=== PATIENT | female | born 1990 | race Caucasian/White ===

== ENCOUNTER 2016-09-26 18:11 | Emergency (ER) | payer OTHER, MEDICAID ==
[2016-09-26 18:29] VITALS: BP 148/69
--- NOTE | 2016-09-26 19:00 | EDM.PDOC ---
[id number]: LOW BACK PAIN Time Seen by Provider: 09/26/16 19:00 Source of Information: Reports: Patient History Limitations: Reports: No Limitations - History of Present Illness INITIAL COMMENTS - FREE TEXT/NARRATIVE: PT HAS A HISTORY OF LUMBAR DISC DISEASE WITH A mri ABOUT 5 YEARS AGO. sHE HAS HAD SOME PAIN ON AND OFF BUT NOTHING STEADY. fOR THE PAST 2 WEEKS SHE HAS BEEN VERY UNCOMFORTABLE. tODAY SHE HAD A PERIOD OF NUMBNESS IN THE LEFT LEG. yESTERDAY SHE HAD SEVERE SHARP SHOOTING PAIN DOWN THE RT LEG. I Onset: Gradual Duration: Day(s):, Other ( THIS HAS BEEN GOING ON FOR 2 WEEKS. ) Location: Reports: Back Associated Symptoms: Reports: No Other Symptoms - Related Data Allergies Allergy/AdvReac Type Severity Reaction Status Date / Time cyclobenzaprine HCl Allergy Swelling Verified 02/17/15 12:39 [From Flexeril] penicillin V [Penicillin V] Allergy Rash Verified 02/17/15 12:39 Penicillins Allergy Rash Verified 02/17/15 12:39 Home Meds: Home Meds Albuterol Sulfate [Proair Hfa] 1 - 2 puff IH ASDIRECTED 12/14/12 [History] Multivitamin with Minerals [Multiple Vitamin] 1 tab PO DAILY 08/08/14 [History] Escitalopram [Lexapro] 10 mg PO DAILY 02/22/16 [History] Loratadine [Claritin] 10 mg PO DAILY 02/22/16 [History] Diclofenac Sodium [Diclofenac Sodium] 09/26/16 [History] Omeprazole [Omeprazole] 09/26/16 [History] Past Medical History HEENT History: Reports: Impaired Vision Respiratory History: Reports: Asthma 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: Neurological History: Reports: Migraines Psychiatric History: Reports: Bipolar, Depression Other Psychiatric History: borderline personality disorder - Past Surgical History GI Surgical History: Reports: Cholecystectomy Female Surgical History: Reports: Section Other Musculoskeletal Surgeries/Procedures:: ankle surgery 07/20/14 Social & Family History - Tobacco Use Smoking Status *Q: Never Smoker Years of Tobacco use: 5 Used Tobacco, but Quit: No Second Hand Smoke Exposure: No - Caffeine Use Caffeine Use: Reports: Coffee, Energy Drinks - Alcohol Use Days Per Week of Alcohol Use: 1 Number of Drinks Per Day: 1 Total Drinks Per Week: 1 - Recreational Drug Use Recreational Drug Use: No ED ROS GENERAL - Review of Systems Review Of Systems: See Below Constitutional: Reports: No Symptoms HEENT: Reports: No Symptoms Respiratory: Reports: No Symptoms Cardiovascular: Reports: No Symptoms Endocrine: Reports: No Symptoms GI/Abdominal: Reports: No Symptoms : Reports: No Symptoms Musculoskeletal: Reports: Other ( SEVERE PAIN IN THE LOWER BACK. ) ED EXAM,LOWER BACK PAIN/INJURY - Physical Exam Exam: See Below Text/Narrative:: PT HAS A KNOWN HISTORY OF LUMBAR DISC DISEASE. sHE HAD A MRI 5 YEARS AGO AND THIS DID SHOW A BULGING DISC. sHE HAS NOT INJURED HERSELF BUT FOR THE LAST 2 WEEKS SHE HAS BEEN VERY UNCOMFORTABLE. iN THE LAST 2 DAYS. SHE HAS HAD NUMBNESS IN THE LEFT LEG AND SHARP SHOOTING PAIN IN THE RT LEG. Exam Limited By: No Limitations General Appearance: Alert, Anxious Ears: Normal TMs Nose: Normal Inspection Throat/Mouth: Normal Inspection Head: Atraumatic Neck: Normal Inspection Cardiovascular: Regular Rate, Rhythm GI/Abdominal: Soft, Non-Tender Back Exam: Other ( TENDER OVER THE RT BUTTOCK AREA. iNCREASED PAIN WITH STRAIGHT LEG RAISING. ) Neurological: Alert Course - Vital Signs Last Recorded V/S: Last Vital Signs Temp 36.3 C 09/26/16 18:38 Pulse 90 09/26/16 18:38 Resp 16 09/26/16 18:38 BP 148/69 H 09/26/16 18:38 Pulse Ox 98 09/26/16 18:38 Departure - Departure Time of Disposition: 19:00 Disposition: Home, Self-Care 01 Condition: Fair Clinical Impression: Lumbar disc disease - Discharge Information Instructions: Degenerative Disk Disease Referrals: Denae Phillip NP [Primary Care Provider] - Forms: ED Department Discharge Care Plan Goals: ice oR heAT TO THE AREA. TORODOL 10MG Q6H PRN FOR PAIN, RTC wednesday FOR A lUMBAR mRI, APPT WITH dR PJ Urbano
== END 2016-09-26 19:28 | disposition home or self-care (01) ==
LOC: JP.ED 18:11
DX: M51.86 Other intervertebral disc disorders, lumbar region (principal); J45.909 Unspecified asthma, uncomplicated; F32.9 Major depressive disorder, single episode, unspecified; Z98.890 Other specified postprocedural states; G43.909 Migraine, unspecified, not intractable, without status migrainosus; Z90.49 Acquired absence of other specified parts of digestive tract; Z79.899 Other long term (current) drug therapy; Z88.0 Allergy status to penicillin; Z88.8 Allergy status to other drugs, medicaments and biological substances
CPT/HCPCS: 99283

== ENCOUNTER 2016-12-17 07:12 | Day surgery (SDC) | payer MEDICAID, OTHER ==
[2016-12-17] MEDS ORDERED: Sodium Chloride 0.9% 1,000 ML IV SCH (07:30)
[2016-12-17] MEDS ORDERED: Propofol 200 MG/20 ML SDV ONE (07:31)
[2016-12-17] MEDS ORDERED: Midazolam 1 MG/ML 2 ML SDV ONE (07:32)
[2016-12-17] MEDS ORDERED: fentaNYL 100 MCG/2 ML SDV ONE (07:32)
[2016-12-17 10:55] VITALS: BP 109/73
--- NOTE | 2016-12-17 11:29 | OR ---
DATE OF PROCEDURE: 12/17/2016 PROCEDURE: Colonoscopy. FINDINGS: 1. No gross abnormalities. 2. Random biopsies of the ascending colon and the rectum taken for inflammatory bowel diagnostic purposes. PREOPERATIVE DIAGNOSES: Rectal pain, diarrhea, constipation. POSTOPERATIVE DIAGNOSES: Rectal pain, diarrhea, constipation. RISKS: Risks, benefits, alternatives, limitations including, but not limited to infection, bleeding, and perforation were explained to the patient and wished to proceed. PROCEDURE IN DETAIL: The patient was placed in left lateral decubitus position. Digital rectal exam was performed which showed small mild external hemorrhoids. Scope was introduced and advanced atraumatically to the ileocecal valve. A photo was taken. Scope was brought back to the ascending, transverse, descending colon, and retroflexed. No evidence of old or new blood. No masses. No polyps. No diverticulosis. No abnormalities on retroflexion. During this process, random biopsies were performed to evaluate for irritable inflammatory bowel disease. The patient tolerated the procedure well. Aden Turcios MD /[id number]
== END 2016-12-17 11:20 | disposition home or self-care (01) ==
LOC: JP.SDS 07:12
PROVIDERS: ATTEND Surgery
DX: K52.9 Noninfective gastroenteritis and colitis, unspecified (principal); K21.9 Gastro-esophageal reflux disease without esophagitis; K59.09 Other constipation; F41.9 Anxiety disorder, unspecified; F32.9 Major depressive disorder, single episode, unspecified; E66.9 Obesity, unspecified; Z88.0 Allergy status to penicillin; Z88.8 Allergy status to other drugs, medicaments and biological substances; Z87.891 Personal history of nicotine dependence; Z90.49 Acquired absence of other specified parts of digestive tract; Z98.890 Other specified postprocedural states; Z68.30 Body mass index [BMI] 30.0-30.9, adult
CPT/HCPCS: 45380; J2250; J2704; J3010; J7040; 88305

== ENCOUNTER 2017-02-26 12:01 | Emergency (ER) | payer OTHER ==
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
[2017-02-26 14:57] VITALS: BP 122/79
== END 2017-02-26 17:11 ==
LOC: JP.ED 12:01
DX: F32.9 Major depressive disorder, single episode, unspecified (principal); J45.909 Unspecified asthma, uncomplicated; K21.9 Gastro-esophageal reflux disease without esophagitis; F43.10 Post-traumatic stress disorder, unspecified; Z79.899 Other long term (current) drug therapy; Z88.0 Allergy status to penicillin; Z88.8 Allergy status to other drugs, medicaments and biological substances
CPT/HCPCS: 36415; 80053; 80305; 81001; 85025; 99285; G0480

== ENCOUNTER 2017-03-20 17:11 | Emergency (ER) | payer OTHER ==
[2017-03-20 17:25] VITALS: BP 139/75
[2017-03-20] MEDS ORDERED: Albuterol/Ipratropium 3.0-0.5 MG/3 ML Neb Soln NEB ONE (18:14)
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
== END 2017-03-20 19:01 | disposition home or self-care (01) ==
LOC: JP.ED 17:11
DX: J20.8 Acute bronchitis due to other specified organisms (principal); J45.909 Unspecified asthma, uncomplicated; F31.9 Bipolar disorder, unspecified; Z87.891 Personal history of nicotine dependence; Z79.899 Other long term (current) drug therapy; Z88.0 Allergy status to penicillin; Z88.8 Allergy status to other drugs, medicaments and biological substances
CPT/HCPCS: 87081; 87430; 87804; 94640; 99284; J7620

== ENCOUNTER 2017-05-21 11:18 | Emergency (ER) | payer OTHER ==
[2017-05-21 11:43] VITALS: BP 119/63
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
== END 2017-05-21 17:55 | disposition home or self-care (01) ==
LOC: JP.ED 11:18
DX: S60.222A Contusion of left hand, initial encounter (principal); S60.221A Contusion of right hand, initial encounter; S80.11XA Contusion of right lower leg, initial encounter; J45.909 Unspecified asthma, uncomplicated; Y33.XXXA Other specified events, undetermined intent, initial encounter; Z91.5 Personal history of self-harm; Z91.011 Allergy to milk products; Z88.0 Allergy status to penicillin; Z88.8 Allergy status to other drugs, medicaments and biological substances; Z79.899 Other long term (current) drug therapy
CPT/HCPCS: 36415; 80053; 81001; 81025; 84443; 85025; 99285

== ENCOUNTER 2017-06-16 12:30 | Emergency (ER) | payer OTHER, MEDICAID ==
[2017-06-16 13:33] VITALS: BP 118/67
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
== END 2017-06-16 21:00 ==
LOC: JP.ED 12:30
DX: R45.851 Suicidal ideations (principal); F32.9 Major depressive disorder, single episode, unspecified; J45.909 Unspecified asthma, uncomplicated; Z88.0 Allergy status to penicillin; Z91.011 Allergy to milk products; Z79.899 Other long term (current) drug therapy; Z90.49 Acquired absence of other specified parts of digestive tract
CPT/HCPCS: 36415; 80053; 80305; 81001; 85025; 99285; G0480

== ENCOUNTER 2018-06-27 17:17 | Emergency (ER) | payer OTHER ==
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
[2018-06-27 18:45] LABS: ACETAMINOPHEN < 2.0 ug/mL (10.0-30.0)
[2018-06-27] MEDS ORDERED: OXcarbazepine 300 MG Tab PO ONE (21:35)
[2018-06-27] MEDS ORDERED: OLANZapine 5 MG Tab PO ONE (21:37)
[2018-06-27] MEDS ORDERED: Mirtazapine 15 MG Tab PO ONE (21:37)
[2018-06-27] MEDS ORDERED: Montelukast 10 MG Tab PO ONE (21:37)
[2018-06-27] MEDS ORDERED: Diclofenac Sodium 75 MG Tab.EC PO ONE (21:38)
[2018-06-27] MEDS ORDERED: busPIRone 5 MG Tab PO ONE (21:38)
[2018-06-27 22:23] VITALS: BP 117/71
== END 2018-06-27 23:39 ==
LOC: JP.ED 17:17
DX: F33.2 Major depressive disorder, recurrent severe without psychotic features (principal); K21.9 Gastro-esophageal reflux disease without esophagitis; E66.9 Obesity, unspecified; Z90.49 Acquired absence of other specified parts of digestive tract; Z88.0 Allergy status to penicillin; Z91.011 Allergy to milk products; Z79.899 Other long term (current) drug therapy
CPT/HCPCS: 36415; 80048; 80305; 81001; 81025; 84443; 85027; 99284; A9270; G0480

== ENCOUNTER 2019-02-01 18:10 | Emergency (ER) | payer OTHER, MEDICARE ==
[2019-02-01 18:28] VITALS: BP 127/81; PULSE 77
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
--- NOTE | 2019-02-01 20:03 | CRLCR ---
Indication: Dyspnea. Technique: PA and lateral views the chest. Comparison: None Findings: The heart is normal in size. The right hemidiaphragm is mildly elevated. No infiltrate, pleural effusion, or pneumothorax is identified. Impression: No acute cardiopulmonary process. Dictated by Mariaa Aguirre MD @ Feb 01 2019 8:01PM Signed by Dr. Mariaa Aguirre @ Feb 01 2019 8:02PM
== END 2019-02-01 20:19 | disposition home or self-care (01) ==
LOC: JP.ED 18:10
DX: R06.02 Shortness of breath (principal); E66.9 Obesity, unspecified; Z68.43 Body mass index [BMI] 50.0-59.9, adult; Z88.0 Allergy status to penicillin; Z79.899 Other long term (current) drug therapy; Z88.1 Allergy status to other antibiotic agents
CPT/HCPCS: 36415; 71046; 80048; 84484; 85027; 85379; 93005; 99285-25

== ENCOUNTER 2019-02-10 23:25 | Emergency (ER) | payer OTHER, MEDICARE ==
[2019-02-10 23:45] VITALS: BP 134/65; PULSE 87
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
== END 2019-02-11 00:05 | disposition home or self-care (01) ==
LOC: JP.ED 23:25
DX: G89.18 Other acute postprocedural pain (principal); K04.7 Periapical abscess without sinus; H54.7 Unspecified visual loss; E78.00 Pure hypercholesterolemia, unspecified; J45.909 Unspecified asthma, uncomplicated; G47.30 Sleep apnea, unspecified; K58.2 Mixed irritable bowel syndrome; K21.9 Gastro-esophageal reflux disease without esophagitis; M19.90 Unspecified osteoarthritis, unspecified site; M54.9 Dorsalgia, unspecified; G89.29 Other chronic pain; G43.909 Migraine, unspecified, not intractable, without status migrainosus; F41.9 Anxiety disorder, unspecified; F31.9 Bipolar disorder, unspecified; F81.9 Developmental disorder of scholastic skills, unspecified; F43.10 Post-traumatic stress disorder, unspecified; F60.3 Borderline personality disorder; E66.9 Obesity, unspecified; Z90.49 Acquired absence of other specified parts of digestive tract; Z91.5 Personal history of self-harm; Z88.0 Allergy status to penicillin; Z88.8 Allergy status to other drugs, medicaments and biological substances; Z91.011 Allergy to milk products; Z79.899 Other long term (current) drug therapy; Z87.891 Personal history of nicotine dependence; Z68.43 Body mass index [BMI] 50.0-59.9, adult
CPT/HCPCS: 99283

== ENCOUNTER 2021-05-01 10:23 | Day surgery (SDC) | payer OTHER, MEDICARE ==
[~2021-05-01 10:23] MED LIST: Midazolam 1 MG/ML 2 ML SDV ONE; Propofol 200 MG/20 ML SDV ONE; fentaNYL 100 MCG/2 ML SDV ONE
[2021-05-01] MEDS ORDERED: Midazolam 1 MG/ML 2 ML SDV ONE (10:46)
[2021-05-01] MEDS ORDERED: Propofol 200 MG/20 ML SDV ONE (10:46)
[2021-05-01] MEDS ORDERED: fentaNYL 100 MCG/2 ML SDV ONE (10:46)
[2021-05-01] MEDS ORDERED: Sodium Chloride 0.9% 1,000 ML IV SCH (11:00)
[2021-05-01 12:32] VITALS: BP 145/91; PULSE 77
== END 2021-05-01 12:55 | disposition home or self-care (01) ==
LOC: JP.SDS 10:23
PROVIDERS: ATTEND Surgery
DX: Z12.11 Encounter for screening for malignant neoplasm of colon (principal); K62.89 Other specified diseases of anus and rectum; J45.909 Unspecified asthma, uncomplicated; E78.5 Hyperlipidemia, unspecified; E66.01 Morbid (severe) obesity due to excess calories; Z68.42 Body mass index [BMI] 45.0-49.9, adult
CPT/HCPCS: 88305; J2250; J2704; J3010; J7030

== ENCOUNTER 2021-08-16 17:37 | Emergency (ER) | payer OTHER, MEDICARE ==
[2021-08-16 17:53] VITALS: BP 137/71; PULSE 83
[2021-08-16 18:42] LABS: ESTIMATED GFR 76 mL/min (>60)
[2021-08-16] MEDS ORDERED: Sodium Chloride 0.9% 1,000 ML IV SCH (19:15)
[2021-08-16] MEDS ORDERED: Iopamidol 612 MG/ML 100 ML Bottle IV PRN (20:50)
[2021-08-16] MEDS ORDERED: Sodium Chloride 0.9% 10 ML Syringe FLUSH PRN (20:50)
[2021-08-16] MEDS ORDERED: Sodium Chloride 0.9% 50 ML IV ONE (20:50)
[2021-08-16] MEDS ORDERED: Ketorolac 30 MG/ML SDV IVPUSH ONE (21:11)
== END 2021-08-16 22:27 | disposition home or self-care (01) ==
LOC: JP.ED 17:37
DX: N83.201 Unspecified ovarian cyst, right side (principal); N83.202 Unspecified ovarian cyst, left side; E66.9 Obesity, unspecified; Z68.42 Body mass index [BMI] 45.0-49.9, adult; Z88.8 Allergy status to other drugs, medicaments and biological substances; Z91.040 Latex allergy status; Z88.0 Allergy status to penicillin; Z91.018 Allergy to other foods; Z91.011 Allergy to milk products; Z79.899 Other long term (current) drug therapy; Z90.49 Acquired absence of other specified parts of digestive tract; Z87.891 Personal history of nicotine dependence
CPT/HCPCS: 36415; 74177; 76830; 76856; 80053; 81001; 85025; 86140; 96360; 99284; J1885; J3490; J7030; Q9967

== ENCOUNTER 2021-09-28 22:18 | Emergency (ER) | payer OTHER, MEDICARE ==
[2021-09-29 00:18] VITALS: PULSE 77
[2021-09-29 00:23] LABS: ESTIMATED GFR 100 mL/min (>60)
[2021-09-29] MEDS ORDERED: Iopamidol 612 MG/ML 100 ML Bottle IV STA (02:00)
[2021-09-29] MEDS ORDERED: Sodium Chloride 0.9% 50 ML IV STA (02:00)
[2021-09-29] MEDS ORDERED: Dexamethasone 4 MG/ML SDV IVPUSH ONE (03:18)
[2021-09-29] MEDS ORDERED: Prochlorperazine 10 MG/2 ML SDV IVPUSH ONE (03:18)
[2021-09-29] MEDS ORDERED: Ketorolac 30 MG/ML SDV IVPUSH ONE (03:18)
[2021-09-29] MEDS ORDERED: Sodium Chloride 0.9% 1,000 ML IV SCH (03:30)
[2021-09-29 03:43] VITALS: BP 112/64
== END 2021-09-29 04:05 | disposition home or self-care (01) ==
LOC: JP.ED 22:18
DX: R10.31 Right lower quadrant pain (principal); R10.32 Left lower quadrant pain; G43.511 Persistent migraine aura without cerebral infarction, intractable, with status migrainosus; F17.210 Nicotine dependence, cigarettes, uncomplicated; E66.9 Obesity, unspecified; Z68.42 Body mass index [BMI] 45.0-49.9, adult; Z88.8 Allergy status to other drugs, medicaments and biological substances; Z91.018 Allergy to other foods; Z91.011 Allergy to milk products; Z88.0 Allergy status to penicillin; Z91.040 Latex allergy status; Z79.899 Other long term (current) drug therapy; Z90.49 Acquired absence of other specified parts of digestive tract; Z20.822 Contact with and (suspected) exposure to COVID-19
CPT/HCPCS: 36415; 74177; 80053; 81001; 83605; 85025; 87635; 96374; 96375; 99284; J0780; J1100; J1885; J3490; J7030; Q9967; U0002

== ENCOUNTER 2024-01-21 14:39 | Emergency (ER) | payer MEDICARE, OTHER ==
[2024-01-21 16:19] LABS: BASOPHILS ABSOLUTE AUTO 0.04 K/uL (0.00-0.10); BASOPHILS PERCENT AUTO 0.4 % (0.1-1.3); EOSINOPHILS ABSOLUTE AUTO 0.16 K/uL (0.00-0.40); EOSINOPHILS PERCENT AUTO 1.7 % (0.0-5.4); HEMATOCRIT 36.3 % (34.3-46.0); HEMOGLOBIN 12.9 g/dL (11.2-15.5); IMMATURE GRAN ABSOLUTE AUTO 0.03 K/uL (0.00-0.23); IMMATURE GRAN PERCENT AUTO 0.3 % (0.0-0.7); LYMPHOCYTES ABSOLUTE AUTO 2.34 K/uL (0.8-3.3); LYMPHOCYTES PERCENT AUTO 24.4 % (11.4-47.7); MEAN CORPUSCULAR HEMOGLOBIN 31.8 pg (31.6-35.5); MEAN CORPUSCULAR HGB CONC 35.5 g/dL (31.6-35.5); MEAN CORPUSCULAR VOLUME 89.4 fL (81.4-99.0); MONOCYTES ABSOLUTE AUTO 0.86 K/uL (0.20-0.90); NEUTROPHILS ABSOLUTE AUTO 6.16 K/uL (1.0-7.6); NEUTROPHILS PERCENT AUTO 64.2 % (40.0-78.1); PLATELET COUNT,PLT 317 K/uL (130-375); RED BLOOD CELL COUNT 4.06 M/uL (3.77-5.24); WHITE BLOOD CELL COUNT,WBC 9.6 K/uL (3.2-11.0)
[2024-01-21 16:20] LABS: BASE EXCESS VENOUS -0.3 mm/L; O2 SATURATION VENOUS 62.1; OXYHEMOGLOBIN 60.2 %; PCO2 VENOUS 51.9 mm/Hg; TOTAL HEMOGLOBIN 13.4 g/dL (12.0-16.0)
[2024-01-21 16:21] LABS: PO2 VENOUS 35.9 mm/Hg
[2024-01-21 16:43] LABS: ALANINE AMINOTRANSFERASE,ALT 32 U/L (12-78); ALKALINE PHOSPHATASE 68 U/L (46-116); ASPARTATE AMNIOTRANSFERASE,AST 21 U/L (15-37); BILIRUBIN TOTAL 0.5 mg/dL (0.2-1.0); BLOOD UREA NITROGEN,BUN 17 mg/dL (7-18); CALCIUM 9.4 mg/dL (8.5-10.1); CARBON DIOXIDE,CO2 29 mmol/L (21-32); CHLORIDE,CL 102 mmol/L (100-108); CREATININE 0.8 mg/dL (0.6-1.0); EST CRCL DRUG DOSING (CG) 81.19 mL/min; ESTIMATED GFR 98 mL/min (>60); GLUCOSE RANDOM 100 mg/dL (74-106); POTASSIUM,K 4.1 mmol/L (3.6-5.2); PROTEIN TOTAL,TP 7.9 g/dL (6.4-8.2); SODIUM,NA 138 mmol/L (140-148)
[2024-01-21 16:44] LABS: ANION GAP 11.1 mmol/L (5.0-14.0)
[2024-01-21 17:12] LABS: CORONAVIRUS COVID-19 NAA NEGATIVE (NEGATIVE); INFLUENZA A NAA NEGATIVE (NEGATIVE); INFLUENZA B NAA NEGATIVE (NEGATIVE); RESPIRATORY SYNCYTIAL VIR NAA NEGATIVE (NEGATIVE)
[2024-01-21 17:41] VITALS: BP 118/67; PULSE 90
== END 2024-01-21 17:49 | disposition home or self-care (01) ==
LOC: JP.ED 14:39
DX: J45.21 Mild intermittent asthma with (acute) exacerbation (principal); R07.89 Other chest pain; K21.9 Gastro-esophageal reflux disease without esophagitis; Z86.16 Personal history of COVID-19; Z90.49 Acquired absence of other specified parts of digestive tract; Z90.710 Acquired absence of both cervix and uterus; Z88.0 Allergy status to penicillin; Z88.1 Allergy status to other antibiotic agents; Z88.8 Allergy status to other drugs, medicaments and biological substances; Z91.040 Latex allergy status; Z91.011 Allergy to milk products; Z91.018 Allergy to other foods; Z79.51 Long term (current) use of inhaled steroids; Z79.899 Other long term (current) drug therapy
CPT/HCPCS: 0241U; 36415; 71045; 80053; 82803; 83605; 84145; 84484; 85025; 85379; 93005; 99285; 93010; 99284

== ENCOUNTER 2024-06-12 19:24 | Emergency (ER) | payer OTHER ==
[2024-06-12 19:49] VITALS: BP 122/65; PULSE 85
[2024-06-12] MEDS: Ketorolac 30 MG/ML SDV IM ONE (20:41)
== END 2024-06-12 21:30 | disposition home or self-care (01) ==
LOC: JP.ED 19:24
DX: R07.89 Other chest pain (principal); E78.00 Pure hypercholesterolemia, unspecified; J45.909 Unspecified asthma, uncomplicated; Z91.018 Allergy to other foods; Z88.8 Allergy status to other drugs, medicaments and biological substances; Z91.040 Latex allergy status; Z88.0 Allergy status to penicillin; Z79.899 Other long term (current) drug therapy; Z79.51 Long term (current) use of inhaled steroids; Z86.16 Personal history of COVID-19
CPT/HCPCS: 96372; 99284; J1885